=== PATIENT | male | born 1970 | race Caucasian/White ===

== ENCOUNTER 2018-11-09 07:45 | Emergency (ER) | payer OTHER ==
[~2018-11-09] VITALS: Ht 170.2 cm; Wt 109.0 kg
[2018-11-09 07:53] VITALS: BP 169/95
[2018-11-09] MEDS ORDERED: OXYMETAZOLINE NASAL SPRAY 0.05%, 15ML NAS ONE (08:30)
[2018-11-09] MEDS ORDERED: BACITRACIN ZINC OINT 500U/GM, 0.9 GM ONE ×2 (08:58→09:00)
[2018-11-09] MEDS ORDERED: OXYMETAZOLINE NASAL SPRAY 0.05%,30ML ONE (09:03)
--- NOTE | 2018-11-09 09:28 | NUR ---
TASK RN: Patient/Caregiver given discharge instructions and they have confirmed that they understand the instructions. Patient ambulatory with steady gait.
[2018-11-10] MEDS ORDERED: LISI-167 PO (00:13)
== END 2018-11-09 09:36 | disposition home or self-care (01) ==
LOC: ED 09:30
DX: R04.0 Epistaxis (principal); I10 Essential (primary) hypertension; F17.200 Nicotine dependence, unspecified, uncomplicated
CPT/HCPCS: 99283

== ENCOUNTER 2018-11-09 23:06 | Emergency (ER) | payer OTHER ==
[~2018-11-09] VITALS: Ht 170.2 cm; Wt 110.0 kg
[2018-11-09] MEDS ORDERED: OXYMETAZOLINE NASAL SPRAY 0.05%,30ML ONE (23:22)
[2018-11-09] MEDS ORDERED: BACITRACIN ZINC OINT 500U/GM, 0.9 GM ONE (23:28)
[2018-11-09] MEDS ORDERED: HYDROcodone/APAP 10/325 MG TABLET ONE (23:57)
[2018-11-10] MEDS ORDERED: HYDROcodone/APAP 10/325 MG TABLET PO ONE
[2018-11-10 00:11] VITALS: BP 175/98
[2018-11-10] MEDS ORDERED: LISI-167 PO (00:13)
== END 2018-11-10 00:14 | disposition home or self-care (01) ==
LOC: ED 11-10
DX: R04.0 Epistaxis (principal); I10 Essential (primary) hypertension
CPT/HCPCS: 30901; 93005; 99284

== ENCOUNTER 2018-11-15 01:11 | Emergency (ER) | payer OTHER ==
[~2018-11-15] VITALS: Ht 170.2 cm; Wt 107.3 kg
[~2018-11-15 01:11] MED LIST: LISI-167 PO
[2018-11-15 01:18] VITALS: BP 169/100
[2018-11-15] MEDS ORDERED: LIDOCAINE 1%-EPI 1:100K, 20ML ONE (01:35)
[2018-11-15] MEDS ORDERED: OXYMETAZOLINE NASAL SPRAY 0.05%,30ML ONE (01:35)
[2018-11-15] MEDS ORDERED: SILVER NITRATE STICK TP ONE ×2 (01:35→02:00)
[2018-11-15] MEDS ORDERED: BACITRACIN ZINC OINT 500U/GM, 0.9 GM TP SCH (02:00)
[2018-11-15] MEDS ORDERED: OXYMETAZOLINE NASAL SPRAY 0.05%,30ML NAS ONE (02:00)
[2018-11-15] MEDS ORDERED: LIDOCAINE 1%-EPI 1:100K, 20ML INFIL ONE (02:00)
[2018-11-15] MEDS ORDERED: BACITRACIN ZINC OINT 500U/GM, 0.9 GM ONE (02:10)
--- NOTE | 2018-11-15 02:41 | NUR ---
DR BECKWITH AT BED SIDE GIVEN POC WILL GIVE BP MED THEN PT WILL FOLLOW UP PCP FOR FURTHER CHECK UP NO BLEEDING NOTED
--- NOTE | 2018-11-15 03:13 | NUR ---
GIVEN DC INSTRUCTION WITH PRESCRIPTION PT AND DAUGHTER UNDERSTOOD INSTRUCTION ( [employer] [place] [place] ) GIVEN WORK NOTE NO BLEEDING NOTED
== END 2018-11-15 03:16 | disposition home or self-care (01) ==
LOC: ED 03:00
DX: R04.0 Epistaxis (principal); I10 Essential (primary) hypertension
CPT/HCPCS: 30905; 99284